=== PATIENT | female | born 1955 | race Two or more races ===

== ENCOUNTER 2016-09-22 22:26 | Emergency (ER) | payer OTHER ==
[~2016-09-22] VITALS: Ht 157.5 cm; Wt 85.7 kg
[2016-09-22 23:17] LABS: Basophils # (auto) 0 uL; Basophils % (auto) 0.3 % (0.0-2.0); DEFINITIVE VIEW TRANSMISSION; Eosinophils # (auto) 0 uL; Eosinophils % (auto) 0.3 % (0.0-7.0); Hematocrit 28.9 % (36.0-46.0); Hemoglobin 8.9 g/dL (12.2-16.2); Lymphocytes # (auto) 0.2 uL; Lymphocytes % (auto) 6.8 % (10.0-50.0); Mean Corpuscular Hgb Conc. 30.9 g/dL (32.0-36.0); Mean Corpuscular Volume 84.2 fL (80.0-100.0); Mean Platelet Volume 7.5 fL (7.4-10.4); Monocytes # (auto) 0.2 uL; Monocytes % (auto) 6.5 % (0.0-12.0); Neutrophils # (auto) 3.1 uL; Neutrophils % (auto) 86.1 % (37.0-80.0); Red Cell Distribution Width 15.2 % (11.6-16.0); White Blood Cell 3.5 10^3/uL (4.4-10.8)
[2016-09-22 23:33] LABS: Partial Thromboplastin Time 26.6 sec (22.64-33.71)
[2016-09-22 23:39] LABS: INR 1.23 (0.9-1.15); Prothrombin Time 13.3 sec (9.37-12.3)
[2016-09-22 23:40] LABS: BUN/Creatinine Ratio 16.4; Calcium 7.8 mg/dL (8.5-10.1); Potassium 4.2 mmol/L (3.5-5.1)
[2016-09-22 23:42] LABS: Bilirubin, Total 1.5 mg/dL (0.2-1.0); Total Protein 6.5 g/dL (6.4-8.2)
[2016-09-23 00:12] LABS: Platelet Count (auto) 49 10^3/uL (140-450)
[2016-09-23] MEDS ORDERED: SODIUM CHLORIDE 0.9% 1,000 ML IV ONE (01:45)
[2016-09-23] MEDS ORDERED: cefTRIAXone 1GM/50ML D5W 50 ML IV ONE (01:45)
[2016-09-23 02:59] LABS: Urine Bilirubin Negative (Negative); Urine Blood Negative /uL (Negative); Urine Color Yellow (Yellow); Urine Glucose Normal (Normal); Urine Ketone Negative (Negative); Urine Nitrite Negative (Negative); Urine RBC 1 /hpf (0 - 4); Urine Squamous Epithelial Cell FEW /hpf (<5)
[2016-09-23 04:08] VITALS: BP 120/56
== END 2016-09-23 04:09 | disposition home or self-care (01) ==
LOC: ER 22:26
DX: R50.9 Fever, unspecified (principal); I10 Essential (primary) hypertension; E11.9 Type 2 diabetes mellitus without complications
CPT/HCPCS: 36415; 71010; 80053; 81001; 85025; 85610; 85730; 96365; 99285; J0696; J7030

== ENCOUNTER 2017-07-04 10:52 | Emergency (ER) | payer OTHER ==
[~2017-07-04] VITALS: Ht 157.5 cm; Wt 84.8 kg
[2017-07-04 11:17] VITALS: BP 141/43
== END 2017-07-04 12:03 | disposition home or self-care (01) ==
LOC: ER 10:52
DX: S39.012A Strain of muscle, fascia and tendon of lower back, initial encounter (principal); S00.83XA Contusion of other part of head, initial encounter; I10 Essential (primary) hypertension; E11.9 Type 2 diabetes mellitus without complications; W01.0XXA Fall on same level from slipping, tripping and stumbling without subsequent striking against object, initial encounter; Y93.01 Activity, walking, marching and hiking; Y92.89 Other specified places as the place of occurrence of the external cause; Y99.8 Other external cause status
CPT/HCPCS: 70450

== ENCOUNTER 2018-08-20 08:10 | Emergency (ER) | payer OTHER ==
[~2018-08-20] VITALS: Ht 157.5 cm; Wt 77.1 kg
[2018-08-20] MEDS ORDERED: SODIUM CHLORIDE 0.9% 1,000 ML IV ONE ×2 (08:27)
[2018-08-20 08:29] VITALS: BP 141/51
[2018-08-20 08:49] LABS: Urine Bacteria FEW /hpf (None Seen); Urine Blood 2+ /uL (Negative); Urine Specific Gravity 1.018 (1.001-1.035); Urine WBC 2 /hpf (0 - 5)
[2018-08-20 09:28] LABS: Basophils # (auto) 0.1 uL; Eosinophils # (auto) 0.3 uL; Hemoglobin 9.6 g/dL (12.2-16.2); Nucleated Red Blood Cells % 1.1 %
[2018-08-20 09:30] LABS: Basophils % (auto) 1.5 % (0.0-2.0); Eosinophils % (auto) 5.2 % (0.0-7.0); Hematocrit 30.7 % (36.0-46.0); Lymphocytes % (auto) 15.3 % (10.0-50.0); Mean Corpuscular Hemoglobin 28.9 pg (28.0-32.0); Mean Corpuscular Hgb Conc. 31.4 g/dL (32.0-36.0); Monocytes % (auto) 15.8 % (0.0-12.0); Neutrophils # (auto) 3.9 uL; Neutrophils % (auto) 62.2 % (37.0-80.0); Red Blood Cells 3.34 10^6/uL (4.0-5.20); Red Cell Distribution Width 15.4 % (11.8-14.3); White Blood Cell 6.3 10^3/uL (4.4-10.8)
[2018-08-20 09:41] LABS: Alanine Aminotransferase 27 U/L (13-56); Anion Gap 7 (5-15); Aspartate Aminotransferase 66 U/L (15-37); BUN/Creatinine Ratio 21.6; Blood Urea Nitrogen 33 mg/dL (7-18); Calcium 7.8 mg/dL (8.5-10.1); Carbon Dioxide 21 mmol/L (21-32); Chloride 110 mmol/L (98-107); GFR African American 45 mL/min; GFR Non-African American 37 mL/min; Glucose 110 mg/dL (74-106); Potassium 4.1 mmol/L (3.5-5.1); Sodium 138 mmol/L (136-145)
[2018-08-20 09:43] LABS: INR 0.97 (0.9-1.15); Partial Thromboplastin Time 25.2 sec (23.78-33.04); Prothrombin Time 10.4 sec (9.27-12.13)
[2018-08-20 09:46] LABS: Alkaline Phosphatase 250 U/L (45-117); Bilirubin, Total 0.4 mg/dL (0.2-1.0); Total Protein 6.1 g/dL (6.4-8.2)
[2018-08-20 09:57] LABS: Platelet Count (auto) 509 10^3/uL (140-450)
== END 2018-08-20 13:43 | disposition left against medical advice (07) ==
LOC: ER 08:10
DX: D78.89 Other postprocedural complications of the spleen (principal); R50.9 Fever, unspecified; E11.9 Type 2 diabetes mellitus without complications; I10 Essential (primary) hypertension
CPT/HCPCS: 36415; 71046; 74176; 80053; 81001; 83605; 83880; 84484; 85025; 85610; 85730; 87040